=== PATIENT | male | born 1995 | race American Indian/Alaskan Native ===

== ENCOUNTER 2017-06-02 11:36 | Emergency (ER) | payer OTHER ==
[2017-06-02 11:58] VITALS: BP 148/91; PULSE 94; RESP 20; TEMP 98.9; O2SAT 98; BMI 33.0
[2017-06-02] MEDS ORDERED: Lidocaine 5% Patch TD STA (12:43)
--- NOTE | 2017-06-02 13:58 | ED PDOC ---
HPI: General Adult Time Seen by Provider: 06/02/17 12:13 Chief Complaint (Nursing): Back Pain History Per: Patient Additional Complaint(s): Pt. states earlier today he had his 2 month old son on his lap when he bent forward slightly and he immediately felt pain in the lower back. Reports pain has been present since. States pain is worse with movement. States he does have a hx of lower back pain but has never had an MRI done nor has he seen a specialist. Denies blunt trauma, hematuria, dysuria, incontinence, numbness, tingling, fever, N/V/D. Past Medical History Reviewed: Historical Data, Nursing Documentation, Vital Signs Vital Signs: Last Vital Signs Temp 98.9 F 06/02/17 11:57 Pulse 94 H 06/02/17 11:57 Resp 20 06/02/17 11:57 BP 148/91 H 06/02/17 11:57 Pulse Ox 98 06/02/17 12:12 - Medical History PMH: Denies: Chronic Kidney Disease - Family History Family History: States: No Known Family Hx - Home Medications Home Medications: Ambulatory Orders Medication Instructions Recorded Folic Acid 1 mg PO DAILY 09/27/15 Multivitamin/Iron/Folic Acid 1 tab PO DAILY 09/27/15 [Centrum Complete Multivit Tab] [place]-3 Fatty Acids/Fish Oil [Fish 1,000 mg PO DAILY 09/27/15 Oil 1,000 mg Capsule] Vitamin B Complex [B-100 Complex] 100 mg PO DAILY 09/27/15 Naproxen [Naprosyn Tab] 375 mg PO Q8 PRN #15 tab 04/27/16 Cyclobenzaprine [Cyclobenzaprine 10 mg PO 15 #12 tab 04/28/16 HCl] oxyCODONE/Acetaminophen [Percocet 1 ea PO Q6H PRN #15 tab 04/28/16 5/325 mg Tab] Lidocaine 5% [Lidoderm] 1 ea TD DAILY PRN #10 patch 06/02/17 Meloxicam [Mobic] 15 mg PO DAILY PRN #15 tablet 06/02/17 Methocarbamol [Robaxin-750] 750 mg PO Q8 PRN #15 tablet 06/02/17 - Allergies Allergies/Adverse Reactions: Allergies Allergy/AdvReac Type Severity Reaction Status Date / Time No Known Allergies Allergy Verified 06/02/17 12:02 Review of Systems ROS Statement: Except As Marked, All Systems Reviewed And Found Negative Musculoskeletal: Positive for: Back Pain Physical Exam - Physical Exam Appears: Positive for: Well, Non-toxic, No Acute Distress Skin: Positive for: Normal Color, Warm. Negative for: Rash Eye Exam: Positive for: Normal appearance Cardiovascular/Chest: Positive for: Regular Rate, Rhythm Respiratory: Positive for: CNT, Normal Breath Sounds Gastrointestinal/Abdominal: Positive for: Normal Exam, Soft. Negative for: Tenderness Back: Positive for: Normal Inspection, Muscle Spasm (b/l paralumbar muscle spasm ). Negative for: L CVA Tenderness, R CVA Tenderness, Vertebral Tenderness Extremity: Positive for: Normal ROM Neurologic/Psych: Positive for: Alert, Oriented - ECG O2 Sat by Pulse Oximetry: 98 - Progress ED Course And Treament: Toradol 60mg IM, valium 10mg PO ordered. Pt. instructed to f/u with [facility] for further evaluation. Disposition - Clinical Impression Clinical Impression: Back pain - Patient ED Disposition Is Patient to be Admitted: No - Disposition Referrals: [facility] [Outside] [facility] [Outside] Disposition: Routine/Home Disposition Time: 13:30 Condition: STABLE Prescriptions: Lidocaine 5% [Lidoderm] 1 ea TD DAILY PRN #10 patch PRN Reason: Pain Meloxicam [Mobic] 15 mg PO DAILY PRN #15 tablet PRN Reason: Pain Methocarbamol [Robaxin-750] 750 mg PO Q8 PRN #15 tablet PRN Reason: Muscle Spasm Instructions: Acute Low Back Pain (ED) Forms: [employer] (Tristanian)
== END 2017-06-02 13:23 | disposition home or self-care (01) ==
LOC: H.ER 11:36
DX: M54.5 Low back pain (principal)
CPT/HCPCS: 96372; 99282; J1885

== ENCOUNTER 2017-11-23 17:09 | Emergency (ER) | payer SELFPAY ==
[2017-11-23 17:09] VITALS: BMI 33.0
[2017-11-23 17:28] VITALS: BP 146/87; PULSE 78; RESP 18; TEMP 98.6; O2SAT 99
[2017-11-23] MEDS ORDERED: Oxycodone/Acetaminophen 5/325 mg Tab ONE (19:38)
[2017-11-23] MEDS ORDERED: Oxycodone/Acetaminophen 5/325 mg Tab PO STA (19:50)
--- NOTE | 2017-11-23 20:06 | ED PDOC ---
HPI: Back Time Seen by Provider: 11/23/17 17:31 Chief Complaint (Nursing): Back Pain Past Medical History Vital Signs: Last Vital Signs Temp 98.6 F 11/23/17 17:22 Pulse 78 11/23/17 17:22 Resp 18 11/23/17 17:22 BP 146/87 11/23/17 17:22 Pulse Ox 99 11/23/17 17:22 - Medical History PMH: Denies: Chronic Kidney Disease - Family History Family History: States: Unknown Family Hx - Home Medications Home Medications: Ambulatory Orders Medication Instructions Recorded Folic Acid 1 mg PO DAILY 09/27/15 Multivitamin/Iron/Folic Acid 1 tab PO DAILY 09/27/15 [Centrum Complete Multivit Tab] [place]-3 Fatty Acids/Fish Oil [Fish 1,000 mg PO DAILY 09/27/15 Oil 1,000 mg Capsule] Vitamin B Complex [B-100 Complex] 100 mg PO DAILY 09/27/15 Naproxen [Naprosyn Tab] 375 mg PO Q8 PRN #15 tab 04/27/16 Cyclobenzaprine [Cyclobenzaprine 10 mg PO 15 #12 tab 04/28/16 HCl] oxyCODONE/Acetaminophen [Percocet 1 ea PO Q6H PRN #15 tab 04/28/16 5/325 mg Tab] Lidocaine 5% [Lidoderm] 1 ea TD DAILY PRN #10 patch 06/02/17 Meloxicam [Mobic] 15 mg PO DAILY PRN #15 tablet 06/02/17 Methocarbamol [Robaxin-750] 750 mg PO Q8 PRN #15 tablet 06/02/17 Ibuprofen [Motrin Tab] 800 mg PO Q6H PRN #20 tab 11/23/17 diaZEpam [Valium] 5 mg PO Q6H PRN #15 tab 11/23/17 - Allergies Allergies/Adverse Reactions: Allergies Allergy/AdvReac Type Severity Reaction Status Date / Time No Known Allergies Allergy Verified 06/02/17 12:02 - ECG O2 Sat by Pulse Oximetry: 99 Disposition - Clinical Impression Clinical Impression: Back pain - Patient ED Disposition Is Patient to be Admitted: No Counseled Patient/Family Regarding: Diagnosis, Need For Followup, Rx Given - Disposition Disposition: Routine/Home Disposition Time: 20:00 Condition: STABLE Prescriptions: diaZEpam [Valium] 5 mg PO Q6H PRN #15 tab PRN Reason: Pain Ibuprofen [Motrin Tab] 800 mg PO Q6H PRN #20 tab PRN Reason: Pain
== END 2017-11-23 20:02 | disposition home or self-care (01) ==
LOC: H.ER 17:09
DX: M54.9 Dorsalgia, unspecified (principal)
CPT/HCPCS: 96372; 99283; J1885

== ENCOUNTER 2018-02-14 23:29 | Emergency (ER) | payer SELFPAY ==
[2018-02-14 23:29] VITALS: BMI 33.0
--- NOTE | 2018-02-15 00:47 | ED PDOC ---
HPI: Back Time Seen by Provider: 02/15/18 00:15 Chief Complaint (Nursing): Back Pain Chief Complaint (Provider): low back pain History Per: Patient History/Exam Limitations: no limitations Onset/Duration Of Symptoms: Hrs Current Symptoms Are (Timing): Still Present Exacerbating Factor(s): Turning, Movement Additional Complaint(s): 22 y/o male presents for evaluation of lower back pain x 6 hours. Patient states he was "power lifting" at the gym, and felt a slight discomfort in the lower back; states he then did boxing afterwards and then was playing with his child at home which made pain worse. Denies nausea/vomiting, numbness/weakness lower extremities, bowel/bladder incontinence. No medications taken for relief thus far. Past Medical History Reviewed: Historical Data, Nursing Documentation, Vital Signs Vital Signs: Last Vital Signs Temp 99.2 F 02/14/18 23:45 Pulse 109 H 02/14/18 23:45 Resp 20 02/14/18 23:45 BP 159/105 H 02/14/18 23:45 Pulse Ox 97 02/14/18 23:45 - Medical History PMH: Back Problems Denies: Chronic Kidney Disease - Family History Family History: States: Unknown Family Hx - Living Arrangements Living Arrangements: With Family - Home Medications Home Medications: Ambulatory Orders Medication Instructions Recorded Folic Acid 1 mg PO DAILY 09/27/15 Multivitamin/Iron/Folic Acid 1 tab PO DAILY 09/27/15 [Centrum Complete Multivit Tab] [place]-3 Fatty Acids/Fish Oil [Fish 1,000 mg PO DAILY 09/27/15 Oil 1,000 mg Capsule] Vitamin B Complex [B-100 Complex] 100 mg PO DAILY 09/27/15 Naproxen [Naprosyn Tab] 375 mg PO Q8 PRN #15 tab 04/27/16 Cyclobenzaprine [Cyclobenzaprine 10 mg PO 15 #12 tab 04/28/16 HCl] oxyCODONE/Acetaminophen [Percocet 1 ea PO Q6H PRN #15 tab 04/28/16 5/325 mg Tab] Lidocaine 5% [Lidoderm] 1 ea TD DAILY PRN #10 patch 06/02/17 Meloxicam [Mobic] 15 mg PO DAILY PRN #15 tablet 06/02/17 Methocarbamol [Robaxin-750] 750 mg PO Q8 PRN #15 tablet 06/02/17 Ibuprofen [Motrin Tab] 800 mg PO Q6H PRN #20 tab 11/23/17 diaZEpam [Valium] 5 mg PO Q6H PRN #15 tab 11/23/17 Cyclobenzaprine [Cyclobenzaprine 10 mg PO BID PRN #14 tab 02/15/18 HCl] Lidocaine 5% [Lidoderm] 1 patch TOP DAILY #7 patch 02/15/18 Naproxen [Naprosyn] 500 mg PO Q12 PRN #20 tablet 02/15/18 - Allergies Allergies/Adverse Reactions: Allergies Allergy/AdvReac Type Severity Reaction Status Date / Time No Known Allergies Allergy Verified 02/14/18 23:45 Review of Systems ROS Statement: Except As Marked, All Systems Reviewed And Found Negative Musculoskeletal: Positive for: Back Pain Physical Exam - Reviewed Nursing Documentation Reviewed: Yes Vital Signs Reviewed: Yes - Physical Exam Appears: Positive for: Well, Non-toxic, No Acute Distress Head Exam: Positive for: ATRAUMATIC, NORMAL INSPECTION, NORMOCEPHALIC Skin: Positive for: Normal Color Cardiovascular/Chest: Positive for: Regular Rate, Rhythm Respiratory: Positive for: Normal Breath Sounds Back: Positive for: Muscle Spasm (b/l lspine paravertebral tenderness). Negative for: L CVA Tenderness, R CVA Tenderness, Vertebral Tenderness, Decreased ROM Extremity: Positive for: Normal ROM Neurologic/Psych: Positive for: Alert, Oriented. Negative for: Motor/Sensory Deficits - ECG O2 Sat by Pulse Oximetry: 97 - Other Rad xray lspine X-Ray: Viewed By Me X-Ray Interpretation: no acute findings - Progress ED Course And Treament: xray, Toradol IM, flexeril PO, Tramadol PO On re-eval, patient states he is feeling better Patient educated on findings, discharged with rx naproxen, flexeril, lidoderm Advised warm compresses Follow up PMD 2-3 days. Return precautions given Disposition - Clinical Impression Clinical Impression: Low back pain - Patient ED Disposition Is Patient to be Admitted: No Counseled Patient/Family Regarding: Studies Performed, Diagnosis, Need For Followup, Rx Given - Disposition Referrals: [facility] [Outside] Disposition: Routine/Home Disposition Time: 02:35 Condition: IMPROVED Prescriptions: Cyclobenzaprine [Cyclobenzaprine HCl] 10 mg PO BID PRN #14 tab PRN Reason: Muscle Spasm Lidocaine 5% [Lidoderm] 1 patch TOP DAILY #7 patch Naproxen [Naprosyn] 500 mg PO Q12 PRN #20 tablet PRN Reason: Pain, Moderate (4-7) Instructions: Low Back Pain in Adults Forms: [employer] (Mosotho)
[2018-02-15 03:08] VITALS: BP 137/79; PULSE 90; RESP 16; TEMP 98.7; O2SAT 99
--- NOTE | 2018-02-15 09:27 | RAD ---
Date of service: 02/15/2018 PROCEDURE: Radiographs of the Lumbar Spine. HISTORY: injury;low back pain COMPARISON: No prior. FINDINGS: BONES: No acute compression fractures no retropulsed fragments. Minor chronic appearing anterior stature loss of the T11, T12 and L1 segments.Additionally, there is a spina bifida occulta L5 segment. DISC SPACES: Disc space heights maintained. OTHER FINDINGS: None. IMPRESSION: Mild chronic anterior appearing stature loss T11, T12 and L1 segments. If acute fracture suspected clinically consider followup CT scan. Incidental note made of spina bifida occulta L5 segment.
== END 2018-02-15 03:08 | disposition home or self-care (01) ==
LOC: H.ER 23:29
DX: M54.5 Low back pain (principal); Y93.B9 Activity, other involving muscle strengthening exercises
CPT/HCPCS: 72100; 96372; 99283; J1885

== ENCOUNTER 2018-03-26 21:47 | Emergency (ER) | payer SELFPAY ==
[2018-03-26 21:49] VITALS: BMI 33.0
[2018-03-26 22:01] VITALS: TEMP 98.9
--- NOTE | 2018-03-26 22:12 | ED PDOC ---
HPI: Skin/Bite Injury Time Seen by Provider: 03/26/18 22:01 Chief Complaint (Nursing): Abnormal Skin Integrity History Per: Patient Additional Complaint(s): Pt. states for the past 1.5 years he's had small non-painful, "annoying" bumps on both sides of his neck. Admits to attempting to burn and "cut open" the bump. Pt. is requesting to remove the bump today. Denies pain, fever, discharge , sore throat. Past Medical History Reviewed: Historical Data, Nursing Documentation, Vital Signs Vital Signs: Last Vital Signs Temp 98.9 F 03/26/18 21:57 Pulse 91 H 03/26/18 22:27 Resp 15 03/26/18 22:27 BP 133/81 03/26/18 22:27 Pulse Ox 98 03/26/18 22:27 - Medical History PMH: Back Problems Denies: Chronic Kidney Disease - Family History Family History: States: No Known Family Hx - Home Medications Home Medications: Ambulatory Orders Medication Instructions Recorded Folic Acid 1 mg PO DAILY 09/27/15 Multivitamin/Iron/Folic Acid 1 tab PO DAILY 09/27/15 [Centrum Complete Multivit Tab] [place]-3 Fatty Acids/Fish Oil [Fish 1,000 mg PO DAILY 09/27/15 Oil 1,000 mg Capsule] Vitamin B Complex [B-100 Complex] 100 mg PO DAILY 09/27/15 Naproxen [Naprosyn Tab] 375 mg PO Q8 PRN #15 tab 04/27/16 Cyclobenzaprine [Cyclobenzaprine 10 mg PO 15 #12 tab 04/28/16 HCl] oxyCODONE/Acetaminophen [Percocet 1 ea PO Q6H PRN #15 tab 04/28/16 5/325 mg Tab] Lidocaine 5% [Lidoderm] 1 ea TD DAILY PRN #10 patch 06/02/17 Meloxicam [Mobic] 15 mg PO DAILY PRN #15 tablet 06/02/17 Methocarbamol [Robaxin-750] 750 mg PO Q8 PRN #15 tablet 06/02/17 Ibuprofen [Motrin Tab] 800 mg PO Q6H PRN #20 tab 11/23/17 diaZEpam [Valium] 5 mg PO Q6H PRN #15 tab 11/23/17 Cyclobenzaprine [Cyclobenzaprine 10 mg PO BID PRN #14 tab 02/15/18 HCl] Lidocaine 5% [Lidoderm] 1 patch TOP DAILY #7 patch 02/15/18 Naproxen [Naprosyn] 500 mg PO Q12 PRN #20 tablet 02/15/18 - Allergies Allergies/Adverse Reactions: Allergies Allergy/AdvReac Type Severity Reaction Status Date / Time No Known Allergies Allergy Verified 03/26/18 21:57 Review of Systems ROS Statement: Except As Marked, All Systems Reviewed And Found Negative Skin: Positive for: Rash Physical Exam - Physical Exam Appears: Positive for: Well, Non-toxic, No Acute Distress Skin: Positive for: Normal Color, Warm, DRY Eye Exam: Positive for: Normal appearance Neck: Negative for: Normal (R side of neck with 2 skin colored papule and another skin colored papule on L side of neck without pustules or vesicles or erythema or fluctuance or induration) - ECG O2 Sat by Pulse Oximetry: 96 Medical Decision Making Medical Decision Making: F/U with [facility] or shipyard helper for further evaluation and possible removal/ biopsy of lesion. Disposition - Clinical Impression Clinical Impression: Papule - Patient ED Disposition Is Patient to be Admitted: No - Disposition Referrals: [facility] [Outside] Disposition: Routine/Home Disposition Time: 22:10 Condition: STABLE Additional Instructions: MARCI HOFFMAN, thank you for letting us take care of you today. Your provider was Kristine Liz MD and you were treated for ABSCESS. The emergency medical care you received today was directed at your acute symptoms. If you were prescribed any medication, please fill it and take as directed. It may take several days for your symptoms to resolve. Return to the Emergency Department if your symptoms worsen, do not improve, or if you have any other problems. Please contact your doctor or call one of the physicians/clinics you have been referred to that are listed on the Patient Visit Information form that is included in your discharge packet. Bring any paperwork you were given at discharge with you along with any medications you are taking to your follow up visit. Our treatment cannot replace ongoing medical care by a primary care provider outside of the emergency department. Thank you for allowing the [facility] team to be part of your care today. If you had an X-Ray or CT scan: A Radiologist will review the ED reading if any change in treatment is needed we will contact you. If you had a blood, urine, or wound culture: It will take several days for the results, if any change in treatment is needed we will contact you. If you had an STI test: It will take 48 hours for the results. Please call after 1 week if you have not heard back. Instructions: Skin Rash (DC) Forms: [employer] (Tamazight) Print Language: CHINESE
[2018-03-26 22:27] VITALS: BP 133/81; PULSE 91; RESP 15
[2018-03-26 23:53] VITALS: O2SAT 96
== END 2018-03-26 22:27 | disposition home or self-care (01) ==
LOC: H.ER 21:47
DX: R23.8 Other skin changes (principal)

== ENCOUNTER 2018-06-03 11:33 | Emergency (ER) | payer OTHER ==
[2018-06-03 11:37] VITALS: BMI 37.2
--- NOTE | 2018-06-03 11:52 | ED PDOC ---
HPI: General Adult Time Seen by Provider: 06/03/18 11:46 Chief Complaint (Provider): knee pain History Per: Patient Additional Complaint(s): 23-year-old male presents with bilateral knee pain status post trip and fall last night. Patient was running up stairs when he fell hitting both his knees on the stairs. Patient denies head injury or loss of consciousness. He woke up this morning with bruising and swelling to both knees. No medication taken for pain relief prior to arrival. PMD; Dr. Rod Past Medical History Reviewed: Historical Data Vital Signs: Last Vital Signs Temp 98.1 F 06/03/18 11:37 Pulse 101 H 06/03/18 11:37 Resp 20 06/03/18 11:37 BP 155/100 H 06/03/18 11:37 Pulse Ox 97 06/03/18 11:37 - Medical History PMH: Back Problems - Surgical History Other surgeries: Left knee surgery - Family History Family History: States: No Known Family Hx - Living Arrangements Living Arrangements: With Family - Social History Current smoker - smoking cessation education provided: No Alcohol: None Drugs: Denies - Home Medications Home Medications: Ambulatory Orders Medication Instructions Recorded Folic Acid 1 mg PO DAILY 09/27/15 Multivitamin/Iron/Folic Acid 1 tab PO DAILY 09/27/15 [Centrum Complete Multivit Tab] [place]-3 Fatty Acids/Fish Oil [Fish 1,000 mg PO DAILY 09/27/15 Oil 1,000 mg Capsule] Vitamin B Complex [B-100 Complex] 100 mg PO DAILY 09/27/15 Naproxen [Naprosyn Tab] 375 mg PO Q8 PRN #15 tab 04/27/16 Cyclobenzaprine [Cyclobenzaprine 10 mg PO 15 #12 tab 04/28/16 HCl] oxyCODONE/Acetaminophen [Percocet 1 ea PO Q6H PRN #15 tab 04/28/16 5/325 mg Tab] Lidocaine 5% [Lidoderm] 1 ea TD DAILY PRN #10 patch 06/02/17 Meloxicam [Mobic] 15 mg PO DAILY PRN #15 tablet 06/02/17 Methocarbamol [Robaxin-750] 750 mg PO Q8 PRN #15 tablet 06/02/17 Ibuprofen [Motrin Tab] 800 mg PO Q6H PRN #20 tab 11/23/17 diaZEpam [Valium] 5 mg PO Q6H PRN #15 tab 11/23/17 Cyclobenzaprine [Cyclobenzaprine 10 mg PO BID PRN #14 tab 02/15/18 HCl] Lidocaine 5% [Lidoderm] 1 patch TOP DAILY #7 patch 02/15/18 Naproxen [Naprosyn] 500 mg PO Q12 PRN #20 tablet 02/15/18 Ibuprofen [Motrin Tab] 800 mg PO Q8 PRN #20 tab 06/03/18 - Allergies Allergies/Adverse Reactions: Allergies Allergy/AdvReac Type Severity Reaction Status Date / Time No Known Allergies Allergy Verified 03/26/18 21:57 Review of Systems ROS Statement: Except As Marked, All Systems Reviewed And Found Negative Musculoskeletal: Positive for: Other (b/l knee pain s/p fall last night) Physical Exam - Reviewed Nursing Documentation Reviewed: Yes Vital Signs Reviewed: Yes - Physical Exam Appears: Positive for: Well, Non-toxic, No Acute Distress Skin: Positive for: Normal Color. Negative for: Rash Eye Exam: Positive for: Normal appearance Extremity: Positive for: Other (Tenderness to right and left patella regions, full range of motion bilateral knees with pain, no calf swelling or tenderness bilaterally) Neurologic/Psych: Positive for: Alert, Oriented - ECG O2 Sat by Pulse Oximetry: 97 Pulse Ox Interpretation: Normal - Other Rad X-ray both knees X-Ray: Interpreted by Me, Viewed By Me X-Ray Interpretation: arthritic changes, no fx or dis Medical Decision Making Medical Decision Makin23 y/o male with bilateral knee pain Plan: Pain meds declined X-ray both knees Patient is aware of all diagnostic testing results, all questions answered. Patient given crutches. Salvador wrap applied to left knee. Prescription for Motrin provided along with referral to orthopedist for follow-up. Disposition - Clinical Impression Clinical Impression: Bilateral knee pain - Patient ED Disposition Is Patient to be Admitted: No Counseled Patient/Family Regarding: Studies Performed, Diagnosis, Need For Followup - Disposition Referrals: Soham Pereira MD [Medical Doctor] - Disposition: Routine/Home Disposition Time: 14:02 Condition: STABLE Additional Instructions: Ice, rest and elevate affected area. Take prescription meds as directed as needed for pain. Follow-up with orthopedist in 2-3 days. Prescriptions: Ibuprofen [Motrin Tab] 800 mg PO Q8 PRN #20 tab PRN Reason: Pain, Moderate (4-7) Instructions: Knee Sprain (DC), Knee Pain (DC) Forms: [facility] ED School/Work Excuse
[2018-06-03 14:37] VITALS: BP 152/81; PULSE 100; RESP 18; TEMP 98.2; O2SAT 98
--- NOTE | 2018-06-03 15:04 | RAD ---
Date of service: 06/03/2018 PROCEDURE: Bilateral Knee Radiographs. HISTORY: trauma COMPARISON: None. FINDINGS: BONES: No acute fracture or dislocation is identified. Postoperative changes are identified at the left distal femur and proximal tibia suggesting prior left anterior cruciate ligament replacement. Limited osteophyte development is seen at the medial lateral femorotibial joint compartments left knee compatible with mild degenerative joint disease. Mild medial femorotibial compartment joint space narrowing is also identified. Osteophyte development is greater than expected for the patient's age of 23 years at the lateral as well as medial femorotibial compartments right knee and minimally seen at the patellofemoral compartment further. Bone islands are identified at the proximal bilateral tibia small exostoses noted at the medial distal femora bilaterally. Local soft tissues appear unremarkable. No definite suprapatellar bursa effusion bilaterally. OTHER FINDINGS: None. IMPRESSION: No acute fracture dislocation bilateral knees with postoperative changes at the left femur and tibia suggestive of prior left ACL replacement. Bilateral degenerative joint changes are seen bicompartmental at the left and tricompartmental at the right, advanced for the patient's age. Small exostoses are identified in the bilateral distal for more medially.
== END 2018-06-03 14:52 | disposition home or self-care (01) ==
LOC: H.ER 11:33
DX: M25.561 Pain in right knee (principal); M25.562 Pain in left knee; W01.0XXA Fall on same level from slipping, tripping and stumbling without subsequent striking against object, initial encounter; Y92.89 Other specified places as the place of occurrence of the external cause

== ENCOUNTER 2019-01-02 13:43 | Emergency (ER) | payer MEDICAID ==
[2019-01-02 13:43] VITALS: BMI 37.2
[2019-01-02 14:27] VITALS: RESP 18
[2019-01-02] MEDS ORDERED: Lidocaine 5% Patch TD STA (15:15)
[2019-01-02] MEDS ORDERED: Lidocaine 5% Patch TD ONE (15:27)
--- NOTE | 2019-01-02 15:49 | ED PDOC ---
HPI: Back Time Seen by Provider: 01/02/19 14:28 Chief Complaint (Nursing): Back Pain Chief Complaint (Provider): Back Pain History Per: Patient History/Exam Limitations: no limitations Onset/Duration Of Symptoms: Days (chronic), Worse Since (yesterday) Current Symptoms Are (Timing): Still Present Additional Complaint(s): 23 year old male with pmhx of chronic low left back pain presents to the ED for evaluation of recurrent back pain radiating into this left buttock onset yesterday that worsens with standing and sitting for long periods. He notes he took Ibuprofen 800mg PO, last dose 1300 today, with no improvement. Otherwise, denies fever, chills, numbness / tingling / weakness in either legs, and urinary or fecal incontinence. Past Medical History Reviewed: Historical Data, Nursing Documentation, Vital Signs Vital Signs: Last Vital Signs Temp 98.5 F 01/02/19 14:26 Pulse 81 01/02/19 14:26 Resp 18 01/02/19 14:26 BP 142/89 01/02/19 14:26 Pulse Ox 97 01/02/19 14:26 Primary Care Provider: Procedure,Nonphys - Medical History PMH: Back Problems Denies: Chronic Kidney Disease - Surgical History Surgical History: No Surg Hx - Family History Family History: States: Unknown Family Hx - Social History Current smoker - smoking cessation education provided: Yes (light) Alcohol: Social Drugs: Denies - Immunization History Hx Tetanus Toxoid Vaccination: Yes Hx Influenza Vaccination: Yes Hx Pneumococcal Vaccination: No - Home Medications Home Medications: Ambulatory Orders Medication Instructions Recorded Folic Acid 1 mg PO DAILY 09/27/15 Multivitamin/Iron/Folic Acid 1 tab PO DAILY 09/27/15 [Centrum Complete Multivit Tab] [place]-3 Fatty Acids/Fish Oil [Fish 1,000 mg PO DAILY 09/27/15 Oil 1,000 mg Capsule] Vitamin B Complex [B-100 Complex] 100 mg PO DAILY 09/27/15 Naproxen [Naprosyn Tab] 375 mg PO Q8 PRN #15 tab 04/27/16 Cyclobenzaprine [Cyclobenzaprine 10 mg PO 15 #12 tab 04/28/16 HCl] oxyCODONE/Acetaminophen [Percocet 1 ea PO Q6H PRN #15 tab 04/28/16 5/325 mg Tab] Lidocaine 5% [Lidoderm] 1 ea TD DAILY PRN #10 patch 06/02/17 Meloxicam [Mobic] 15 mg PO DAILY PRN #15 tablet 06/02/17 Methocarbamol [Robaxin-750] 750 mg PO Q8 PRN #15 tablet 06/02/17 Ibuprofen [Motrin Tab] 800 mg PO Q6H PRN #20 tab 11/23/17 diaZEpam [Valium] 5 mg PO Q6H PRN #15 tab 11/23/17 Cyclobenzaprine [Cyclobenzaprine 10 mg PO BID PRN #14 tab 02/15/18 HCl] Lidocaine 5% [Lidoderm] 1 patch TOP DAILY #7 patch 02/15/18 Naproxen [Naprosyn] 500 mg PO Q12 PRN #20 tablet 02/15/18 Ibuprofen [Motrin Tab] 800 mg PO Q8 PRN #20 tab 06/03/18 Cyclobenzaprine [Cyclobenzaprine 10 mg PO Q8 PRN 5 Days tab 01/02/19 HCl] Ibuprofen [Motrin Tab] 800 mg PO Q6 PRN 7 Days tab 01/02/19 Lidocaine 5% [Lidoderm] 1 ea TD DAILY 7 Days patch 01/02/19 - Allergies Allergies/Adverse Reactions: Allergies Allergy/AdvReac Type Severity Reaction Status Date / Time No Known Allergies Allergy Verified 03/26/18 21:57 Review of Systems ROS Statement: Except As Marked, All Systems Reviewed And Found Negative Constitutional: Negative for: Fever, Chills Genitourinary Male: Negative for: Incontinence Musculoskeletal: Positive for: Back Pain (left lower, going into left buttock) Neurological: Negative for: Weakness (in bilateral legs), Numbness (or tingling) Physical Exam - Reviewed Nursing Documentation Reviewed: Yes Vital Signs Reviewed: Yes - Physical Exam Appears: Positive for: Uncomfortable Pulses-Dorsalis Pedis (L): 2+ Pulses-Dorsalis Pedis (R): 2+ Back: Positive for: Normal Inspection (no erythema, ecchymosis, or swelling noted), Decreased ROM (mildly decreased ROM in back with flexion), Other (tenderness to palpation of left paravertebral spine and left buttock) Extremity: Positive for: Normal ROM (at left hip but with pain on flexion), Capillary Refill (less than 2 seconds) Neurological/Psych: Positive for: Awake, Alert, Symmetric/Intact Strength (strength in bilateral lower extremities), Oriented (x3), Other (sensation to light touch intact) - ECG O2 Sat by Pulse Oximetry: 97 (RA) Pulse Ox Interpretation: Normal Medical Decision Making Medical Decision Making: Time: 1514 Initial Impression: sciatica Initial Plan: --Flexeril 10mg PO (pt not driving home) --Lidoderm patch applied --Patient informed that since he recently took a high dose of Ibuprofen, he is unable to have Toradol at this time. Advised him to continue taking Ibuprofen at home for the next 48 hours with Flexeril as often as he is able to in order to reduce inflammation. 1537 Educated patient on sciatic pain and need to perform the exercises given in the d/c papers. He verbalized understanding and all questions were answered. Stable for d/c with return parameters discussed. Scribe Attestation: Documented by Jeanette Roberson, acting as a scribe for Nichole Gomez PA-C Provider Scribe Attestation: All medical record entries made by the Scribe were at my direction and personally dictated by me. I have reviewed the chart and agree that the record accurately reflects my personal performance of the history, physical exam, medic al decision making, and the department course for this patient. I have also personally directed, reviewed, and agree with the discharge instructions and disposition. Disposition - Clinical Impression Clinical Impression: Sciatica - Disposition Referrals: [facility] [Outside] Disposition Time: 15:37 Condition: STABLE Additional Instructions: Follow up with your primary care doctor as needed for chronic treatment of your pain. Take Ibuprofen and Flexeril (Cyclobenzaprine) fairly regularly for the next 48hrs. Avoid taking Flexeril if you will be driving or need to be awake as it can make you drowsy. Return to ER if pain worsens. Start using sciatica exercises when the pain has improved. Prescriptions: Cyclobenzaprine [Cyclobenzaprine HCl] 10 mg PO Q8 PRN 5 Days tab PRN Reason: Muscle Spasm Ibuprofen [Motrin Tab] 800 mg PO Q6 PRN 7 Days tab PRN Reason: Pain, Moderate (4-7) Lidocaine 5% [Lidoderm] 1 ea TD DAILY 7 Days patch Instructions: Sciatica (DC), Sciatica Exercises Forms: [facility] (Slovak) Print Language: IRISH
[2019-01-02 16:01] VITALS: BP 132/84; PULSE 86; TEMP 98.2; O2SAT 99
== END 2019-01-02 15:59 | disposition home or self-care (01) ==
LOC: H.ER 13:43
DX: M54.32 Sciatica, left side (principal)

== ENCOUNTER 2019-01-04 14:04 | Emergency (ER) | payer MEDICAID ==
[2019-01-04 14:05] VITALS: BMI 37.2
[2019-01-04 15:24] LABS: BASO # 0.1 K/uL (0.0-0.2); EOS # 0.1 K/uL (0.0-0.7); EOS % 0.8 % (0.0-4.0); HEMOGLOBIN 14.3 g/dL (12.0-18.0); LYMPH # 3.1 K/uL (1.0-4.3); MEAN CORPUSCULAR HEMOGLOBIN 27.4 pg (27.0-31.0); MEAN CORPUSCULAR HGB CONC 34.2 g/dL (33.0-37.0); MEAN PLATELET VOLUME 7.6 fl (7.2-11.7); MONO # 0.5 K/uL (0.0-0.8); MONO % 7.1 % (0.0-10.0); NEUT # 3.2 K/uL (1.8-7.0); NEUT % 46.1 % (50.0-75.0); RBC 5.23 Mil/uL (4.40-5.90); RED CELL DISTRIBUTION WIDTH 14.6 % (11.5-14.5)
[2019-01-04 15:33] LABS: ALB/GLOB RATIO 1.5 (1.0-2.1); ALBUMIN 4.5 g/dL (3.5-5.0); ALT/SGPT 34 U/L (21-72); AMYLASE 84 U/L (30-110); AST/SGOT 35 U/L (17-59); BLOOD UREA NITROGEN 19 mg/dl (9-20); CALCIUM 9.4 mg/dL (8.4-10.2); GFR NON-AFRICAN AMERICAN > 60
--- NOTE | 2019-01-04 15:44 | ED PDOC ---
HPI: General Adult Time Seen by Provider: 01/04/19 14:38 Chief Complaint (Nursing): Needle Stick Chief Complaint (Provider): Needle Stick History Per: Patient History/Exam Limitations: no limitations Onset/Duration Of Symptoms: Mins Current Symptoms Are (Timing): Still Present Additional Complaint(s): Patient is a 23 y/o male with no significant PMHx who presents to the ED for evaluation of a needle stick prior to arrival. Patient was in a phlebotomy class and drawing blood when the needle he had used on the person accidentally stuck his right pointer finger. Patient states he asked the person if they had HIV and the person said he did not. Patient advised to come to ED for further evaluation. Patient has not further medical complaints. PCP: None tetanus:UTD Past Medical History Reviewed: Historical Data, Nursing Documentation, Vital Signs Vital Signs: Last Vital Signs Temp 98.5 F 01/04/19 14:07 Pulse 94 H 01/04/19 14:07 Resp 16 01/04/19 14:07 BP 151/94 H 01/04/19 14:07 Pulse Ox 98 01/04/19 14:07 Primary Care Provider: FAMILY PROVIDER,NO - Medical History PMH: Back Problems Denies: Chronic Kidney Disease - Surgical History Surgical History: No Surg Hx - Family History Family History: States: Unknown Family Hx - Immunization History Hx Tetanus Toxoid Vaccination: Yes Hx Influenza Vaccination: Yes Hx Pneumococcal Vaccination: No - Home Medications Home Medications: Ambulatory Orders Medication Instructions Recorded Folic Acid 1 mg PO DAILY 09/27/15 Multivitamin/Iron/Folic Acid 1 tab PO DAILY 09/27/15 [Centrum Complete Multivit Tab] [place]-3 Fatty Acids/Fish Oil [Fish 1,000 mg PO DAILY 09/27/15 Oil 1,000 mg Capsule] Vitamin B Complex [B-100 Complex] 100 mg PO DAILY 09/27/15 Naproxen [Naprosyn Tab] 375 mg PO Q8 PRN #15 tab 04/27/16 Cyclobenzaprine [Cyclobenzaprine 10 mg PO 15 #12 tab 04/28/16 HCl] oxyCODONE/Acetaminophen [Percocet 1 ea PO Q6H PRN #15 tab 04/28/16 5/325 mg Tab] Lidocaine 5% [Lidoderm] 1 ea TD DAILY PRN #10 patch 06/02/17 Meloxicam [Mobic] 15 mg PO DAILY PRN #15 tablet 06/02/17 Methocarbamol [Robaxin-750] 750 mg PO Q8 PRN #15 tablet 06/02/17 Ibuprofen [Motrin Tab] 800 mg PO Q6H PRN #20 tab 11/23/17 diaZEpam [Valium] 5 mg PO Q6H PRN #15 tab 11/23/17 Cyclobenzaprine [Cyclobenzaprine 10 mg PO BID PRN #14 tab 02/15/18 HCl] Lidocaine 5% [Lidoderm] 1 patch TOP DAILY #7 patch 02/15/18 Naproxen [Naprosyn] 500 mg PO Q12 PRN #20 tablet 02/15/18 Ibuprofen [Motrin Tab] 800 mg PO Q8 PRN #20 tab 06/03/18 Cyclobenzaprine [Cyclobenzaprine 10 mg PO Q8 PRN 5 Days tab 01/02/19 HCl] Ibuprofen [Motrin Tab] 800 mg PO Q6 PRN 7 Days tab 01/02/19 Lidocaine 5% [Lidoderm] 1 ea TD DAILY 7 Days patch 01/02/19 - Allergies Allergies/Adverse Reactions: Allergies Allergy/AdvReac Type Severity Reaction Status Date / Time No Known Allergies Allergy Verified 03/26/18 21:57 Review of Systems ROS Statement: Except As Marked, All Systems Reviewed And Found Negative Skin: Positive for: Other (needle stick to right pointer finger) Physical Exam - Reviewed Nursing Documentation Reviewed: Yes Vital Signs Reviewed: Yes - Physical Exam Comments: GENERAL APPEARANCE: Patient is awake, alert, oriented x 3, in mild painful distress. Skin: warm and dry. needle stick on end of right pointer finger. Pulmonary: lungs clear, no rhonchi, no wheezing. Cardiac: regular rate and rhythm, no murmur, no gallop. Abdomen: soft, nontender. Extremities: no deformity, full range of motion, no tenderness. - Laboratory Results Result Diagrams: 01/04/19 15:18 01/04/19 15:18 Lab Results: Total Bilirubin 0.4 mg/dl (0.2-1.3) 01/04/19 15:18 AST 35 U/L (17-59) 01/04/19 15:18 ALT 34 U/L (21-72) 01/04/19 15:18 Alkaline Phosphatase 72 U/L (38-126) 01/04/19 15:18 Total Protein 7.6 G/DL (6.3-8.2) 01/04/19 15:18 Albumin 4.5 g/dL (3.5-5.0) 01/04/19 15:18 Globulin 3.1 gm/dL (2.2-3.9) 01/04/19 15:18 Albumin/Globulin Ratio 1.5 (1.0-2.1) 01/04/19 15:18 Amylase 84 U/L (30-110) 01/04/19 15:18 - ECG O2 Sat by Pulse Oximetry: 98 (RA) Pulse Ox Interpretation: Normal Medical Decision Making Medical Decision Making: Time: 1448 Impression: Needle Stick Plan: Amylase CMP Hepatitis B Surface AB Hepatitis Panel (Acute) HIV 1&2 Antibody CBC ED Obtain Labs Rapid HIV Screen Rapid Plasma Reagin UA Time: 1515 Discussed prophylactic HIV treatment risks vs benefit. Patient declined treatment at this time. 16:40 rapid HIV negative, CBC and CMP unremarkable, pt stable for dc Discussed results, diagnosis, treatment, return precautions and f/u with pt who is understanding, in agreement and stable for dc Scribe Attestation: Documented by Arsh Guerra, acting as a scribe Tawanna Barron PA-C. Provider Scribe Attestation: All medical record entries made by the Scribe were at my direction and personally dictated by me. I have reviewed the chart and agree that the record accurately reflects my personal performance of the history, physical exam, medic al decision making, and the department course for this patient. I have also personally directed, reviewed, and agree with the discharge instructions and disposition. Disposition - Clinical Impression Clinical Impression: Needle stick injury - Patient ED Disposition Is Patient to be Admitted: No Counseled Patient/Family Regarding: Studies Performed, Diagnosis, Need For Followup - Disposition Referrals: [facility] [Outside] Disposition: Routine/Home Disposition Time: 16:46 Condition: STABLE Additional Instructions: Thank you for letting us take care of you today. The emergency medical care you received today was directed at your acute symptoms. If you were prescribed any medication, please fill it and take as directed. It may take several days for your symptoms to resolve. Return to the Emergency Department if your symptoms worsen, do not improve, or if you have any other problems. Please contact your doctor in 2 days for re-evaluation and follow up / or call one of the physicians/clinics you have been referred to that are listed on the Patient Visit Information form that is included in your discharge packet. Bring any paperwork you were given at discharge with you along with any medications you are taking to your follow up visit. Our treatment cannot replace ongoing medical care by a primary care provider (PCP) outside of the emergency department. Forms: [employer] (Faroese) Print Language: INDONESIAN - POA Present On Arrival: None
[2019-01-04 17:00] VITALS: BP 143/87; PULSE 86; RESP 19; TEMP 97.9
[2019-01-04 20:16] VITALS: O2SAT 98
[2019-01-04 21:31] LABS: HEPATITIS B SURFACE AG Negative (NEGATIVE)
[2019-01-04 21:38] LABS: HEPATITIS A IGM NEGATIVE (NEGATIVE); HEPATITIS B CORE AB NEGATIVE (NEGATIVE)
[2019-01-04 21:48] LABS: HEPATITIS C ANTIBODY NEGATIVE (NEGATIVE)
== END 2019-01-04 16:50 | disposition home or self-care (01) ==
LOC: H.ER 14:04
DX: S61.431A Puncture wound without foreign body of right hand, initial encounter (principal); W46.0XXA Contact with hypodermic needle, initial encounter; Y92.89 Other specified places as the place of occurrence of the external cause